=== PATIENT | female | born 1960 | race Caucasian/White ===

== ENCOUNTER 2019-03-26 05:58 | Day surgery (SDC) | payer OTHER ==
[2019-03-25 11:57] VITALS: BMI 34.9
[2019-03-26] MEDS ORDERED: Fentanyl 100 MCG/2 ML VIAL ONE (06:31)
[2019-03-26] MEDS ORDERED: Midazolam HCl 2 mg/2 ml Vial ONE (06:31)
[2019-03-26 06:37] LABS: #Basophils 0.1 thou/uL (0.0-0.2); #Eosinphils 0.2 thou/uL (0.0-0.7); #Monocytes 0.8 thou/uL (0.11-0.59); #Neutrophils 4.2 thou/uL (1.40-6.50); %Basophils 1.1 % (0.0-1.0); %Eosinophils 3.1 % (0.0-10.0); %Lymphocytes 27.1 % (21.0-51.0); %Monocytes 10.6 % (0.0-10.0); %Neutrophils 58.2 % (42.0-75.0); Hemoglobin 13.9 g/dL (12.0-16.0); Mean Corpuscular HGB CONC 32.2 g/dL (32.0-36.0); Mean Corpuscular Hemoglobin 30.5 pg (27.0-31.0); Mean Corpuscular Volume 94.6 fL (78.0-98.0); Mean Platelet Volume 7.6 fL (7.4-10.4); Platelet Count 263 thou/uL (130-400); RBC Distribution Width 11.9 % (11.5-14.5); Red Blood Cell (RBC) Count 4.57 mill/uL (4.20-5.40); White Blood Cell (WBC) Count 7.3 thou/uL (4.8-10.8)
[2019-03-26 06:47] LABS: INR-International Normal Ratio 0.9; PTT 29.5 SEC (22.9-36.1); Prothrombin Time 12.3 SEC (12.0-14.7)
[2019-03-26 07:00] LABS: Anion Gap 11 mmol/L (10-20); BUN (Urea Nitrogen) 22 mg/dL (9.8-20.1); Calc. Creatinine Clearance 114 mL/min (70-130); Calcium 9.7 mg/dL (7.8-10.44); Carbon Dioxide 26 mmol/L (22-29); Chloride 104 mmol/L (98-107); Estimated GFR-MDRD 73; Glucose 112 mg/dL (70-105); Sodium 137 mmol/L (136-145)
[2019-03-26] MEDS ORDERED: Fentanyl 100 MCG/2 ML VIAL SLOW IVP PRN (07:08)
[2019-03-26] MEDS ORDERED: Zolpidem Tartrate 5 MG TAB PO PRN (07:08)
[2019-03-26] MEDS ORDERED: Ropivacaine 0.2% 550 ML 550 ML NERVE BLCK SCH (07:08)
[2019-03-26] MEDS ORDERED: traMADol HCl 50 MG TAB PO PRN ×2 (07:08)
[2019-03-26] MEDS ORDERED: Promethazine HCl 25 MG/ML VIAL IM PRN (07:08)
[2019-03-26] MEDS ORDERED: Ondansetron PF 4 MG/2 ML Vial IVP PRN (07:08)
[2019-03-26] MEDS ORDERED: HYDROcodone/Acetaminophen 10/325 mg Tablet PO PRN ×2 (07:08)
--- NOTE | 2019-03-26 07:33 | RAD ---
2 view chest: 03/26/2019 COMPARISON: None HISTORY: Preoperative patient FINDINGS: Lungs are clear. Heart and mediastinal contours unremarkable. IMPRESSION: No acute findings.
[2019-03-26] MEDS ORDERED: Bupivacaine/Epinephrine 0.25% 30 ML VIAL ONE (07:45)
[2019-03-26] MEDS ORDERED: Promethazine HCl 25 MG/ML VIAL ONE (09:38)
[2019-03-26] MEDS ORDERED: Ketorolac Tromethamine 30 MG/ML VIAL IVP SCH (12:00)
--- NOTE | 2019-03-26 13:41 | OP ---
DATE OF PROCEDURE: 03/26/2019 PREOPERATIVE DIAGNOSIS: Right high-grade rotator cuff tear. POSTOPERATIVE DIAGNOSIS: 1. Right high-grade rotator cuff tear. 2. Impingement. PROCEDURE PERFORMED: Right rotator cuff repair with a subacromial decompression. AUDITOR SUPERVISOR: None. ANESTHESIOLOGIST: Dharmesh Barker. ANESTHESIA: The patient received a general endotracheal intubation with interscalene block. ESTIMATED BLOOD LOSS: 30 mL. TOURNIQUET TIME: None. IMPLANTS: A 5.5 Arthrex corkscrew, 4.75 SwiveLock. ANTIBIOTICS: Ancef 2 g. COMPLICATIONS: None. HISTORY PRESENT ILLNESS: Ms. Humphreys is a pleasant 58-year-old female, who presents after moving to [place] from [place]. This patient had a fall back in about a year ago, continued to have pain, had conservative measures with therapy, injections, continued to have symptoms, had MRI, which showed evidence of a high-grade rotator cuff tear. I discussed with the patient the risks and benefits of a right rotator cuff repair with possible biceps tenodesis and decompression. I discussed the risks and benefits of the surgery to include pain, scar, bleeding, infection, damage to vital structures, decreased range of motion and strength, nonunion, malunion of fracture and loss of life or limb. The patient understood the risks and benefits, elected to proceed. DESCRIPTION OF PROCEDURE: Time-out was performed designating the patient's right upper extremity as the operative site based on site, consents, and marking. After posterior working portal was placed intra-articularly, I looked and visualized the joint. Anterior portal was placed into the rotator interval. I debrided the portion of the patient, which looked like a [place] complex and attached labrum anteriorly. She had a just small partial surface subscapularis tear. The biceps looked good through its groove. There was some changes noted to the humeral head, but otherwise had no erythema or induration or any changes to the sling or to the biceps, therefore I left it in place. I looked at the rotator cuff, which had a little bit of fraying of the capsule, but no other obvious full-thickness damage. I then moved subacromially, there was slight a bit of hook and increased soft tissue, in which I used the cautery and a bit of a lula to smooth down subacromially. I found the cuff tear. I created a footprint and debrided bone to help bleeding bone for repair. I placed the 5.5 corkscrew into the interval, placed 4 sutures, placed 2 horizontal mattress sutures and used those as a double row to pass over laterally into a 4.75 SwiveLock. I felt like I had good overall repair of the cuff. I took final pictures, washed and closed with 3-0 nylon. The patient will be in a sling with elbow, wrist, and hand motion until she will follow up with me in 2 weeks. Job ID: [id number]
--- NOTE | 2019-03-26 16:51 | EKG ---
Test Reason : PREOP Blood Pressure : / mmHG Vent. Rate : 063 BPM Atrial Rate : 063 BPM P-R Int : 146 ms QRS Dur : 090 ms QT Int : 430 ms P-R-T Axes : 063 037 023 degrees QTc Int : 440 ms Normal sinus rhythm Normal ECG Confirmed by DR. Richard LEE ([id number]) on 03/26/2019 4:51:14 PM Referred By: JASON Confirmed By:DR. Richard LEE
== END 2019-03-26 10:50 | disposition home or self-care (01) ==
LOC: SDC 05:58
PROVIDERS: ATTEND Orthopaedic Surgery
PROC: 0LQ14ZZ Repair Right Shoulder Tendon, Percutaneous Endoscopic Approach (ICD-10-PCS; principal; 2019-03-26)
PROC: 3E0T3BZ Introduction of Anesthetic Agent into Peripheral Nerves and Plexi, Percutaneous Approach (ICD-10-PCS; principal; 2019-03-26)
DX: M75.101 Unspecified rotator cuff tear or rupture of right shoulder, not specified as traumatic (principal); S46.811A Strain of other muscles, fascia and tendons at shoulder and upper arm level, right arm, initial encounter; M25.811 Other specified joint disorders, right shoulder; G89.18 Other acute postprocedural pain; I10 Essential (primary) hypertension; E78.00 Pure hypercholesterolemia, unspecified; E89.0 Postprocedural hypothyroidism; Z87.891 Personal history of nicotine dependence; Z88.2 Allergy status to sulfonamides; Z88.1 Allergy status to other antibiotic agents; Z79.899 Other long term (current) drug therapy
CPT/HCPCS: 36415; 71046; 80048; 85025; 85610; 85730; 93005; 93010; A4306; C1713; J0690; J2250; J2550; J2795; J3010

== ENCOUNTER 2020-04-01 09:06 | Outpatient (CLI) | payer OTHER ==
--- NOTE | 2020-04-01 10:26 | MMO ---
Bilateral MAMMO Bilat Screen [facility]. CLINICAL HISTORY: Patient is 59 years old and is seen for screening. The patient has the following family history of breast cancer: maternal grandmother, malignant (generic). The patient has a history of Skin cancer. The patient has a history of left Ultrasound Guided Core Biopsy in yrs ago - benign - x2. VIEWS: The views performed were: bilateral craniocaudal with tomosynthesis and bilateral mediolateral oblique with tomosynthesis. FILMS COMPARED: The present examination has been compared to prior imaging studies performed at [facility] on 11/28/2011, 01/13/2013, 01/20/2013 and 06/25/2018. This study has been interpreted with the assistance of computer-aided detection. MAMMOGRAM FINDINGS: There are scattered fibroglandular densities. There are no suspicious masses, suspicious calcifications, or new areas of architectural distortion. IMPRESSION: THERE IS NO MAMMOGRAPHIC EVIDENCE OF MALIGNANCY. A ROUTINE FOLLOW-UP MAMMOGRAM IN 1 YEAR IS RECOMMENDED. THE RESULTS OF THIS EXAM WERE SENT TO THE PATIENT. ACR BI-RADS Category 1 - Negative MAMMOGRAPHY NOTE: 1. A negative mammogram report should not delay a biopsy if a dominant of clinically suspicious mass is present. 2. Approximately 10% to 15% of breast cancers are not detected by mammography. 3. Adenosis and dense breasts may obscure an underlying neoplasm. Reported by: MIGUEL BAIRD MD Electonically Signed: [id number]
== END 2020-04-01 09:07 | disposition home or self-care (01) ==
LOC: BICMAMMO 09:06
PROVIDERS: ATTEND Nurse Practitioner Family
DX: Z12.31 Encounter for screening mammogram for malignant neoplasm of breast (principal); Z80.3 Family history of malignant neoplasm of breast; Z85.828 Personal history of other malignant neoplasm of skin; Z91.89 Other specified personal risk factors, not elsewhere classified
CPT/HCPCS: 77063; 77067

== ENCOUNTER 2020-04-13 10:01 | Outpatient (CLI) | payer OTHER ==
--- NOTE | 2020-04-13 10:41 | RAD ---
2 VIEW CHEST: Date: 04/13/2020 INDICATION: Cough. COMPARISON: 03/26/2019. FINDINGS: The lungs appear clear. No infiltrate identified. Heart and mediastinum unremarkable. Vascular markin gs normal. IMPRESSION: No acute process. POS: AGW
== END 2020-04-13 10:02 | disposition home or self-care (01) ==
LOC: RAD-FRANK 10:01
PROVIDERS: ATTEND Nurse Practitioner Family
DX: R05 Cough (principal)
CPT/HCPCS: 71046